=== PATIENT | male | born 1980 | race Caucasian/White ===

== ENCOUNTER 2016-11-03 13:24 | Emergency (ER) | payer SELFPAY ==
[~2016-11-03] VITALS: Ht 172.7 cm; Wt 67.0 kg
[~2016-11-03 13:24] MED LIST: HYDR2.5%T PR; LIDO5CRE EX
[2016-11-03 13:32] VITALS: BP 132/91; PULSE 111; RESP 18; TEMP 98.7; O2SAT 98
[2016-11-03] MEDS ORDERED: PROC2.5C RECTAL (13:44)
[2016-11-03] MEDS ORDERED: LIDOCAINE 1%/EPINEPHrine 1:100,000 SOLN 20 ML VIAL INFIL ONE (13:45)
--- NOTE | 2016-11-03 13:47 | PD ---
HPI Chief Complaint: GI Complaint Time Seen by Provider: 13:34 Travel History International Travel<30 days: No Contact w/Intl Traveler<30days: No Traveled to known affect area: No History of Present Illness HPI The patient is a 36-year-old male who presents emergency department for painful hemorrhoid. The patient has a history of painful hemorrhoids in the past with previous thrombectomy for removal of a thrombosed hemorrhoid as well as conservative treatment. The patient has been using [id number] medications and previous prescriptions for his hemorrhoid pain, however, continues to have pain. The patient states his symptoms started one week ago after he helped a neighbor remove a fence and was doing heavy lifting. The pain is worse with having bowel movements, but is persistent at rest. The patient states he can feel an external hemorrhoid which is significantly tender to palpation. The symptoms are moderate, possibly exacerbated by recent heavy lifting, and similar to a history of previous hemorrhoids. PFSH Past Surgical History Other Surgery: Yes (LANCED HEMMORRHOIDS 2014) Social History Alcohol Use: No Tobacco Use: Yes Substance Use: No Allergies-Medications (Allergen,Severity, Reaction): Coded Allergies: No Known Allergies (Unverified , 11/03/16) Reported Meds & Prescriptions Reported Meds & Active Scripts Active Reported Proctosol Hc (Hydrocortisone Rectal) 2.5% Cream 1 Applic RECTAL BID PRN Review of Systems Except as stated in HPI: all other systems reviewed are Neg Gastrointestinal: Positive: Other (as noted in the history of present illness) , No: Nausea, Vomiting, Abdominal Pain Genitourinary: No: Dysuria Skin: No Rash Physical Exam Narrative GENERAL: Awake, alert, 36-year-old male who appears his stated age and is in no acute respiratory distress. SKIN: Focused skin assessment warm/dry. HEAD: Atraumatic. Normocephalic. EYES: No injection or drainage. NECK: Trachea midline. No JVD. GASTROINTESTINAL: Abdomen soft, non-tender, nondistended. Rectal: The patient has an external and thrombosed hemorrhoid which is tender palpation. MUSCULOSKELETAL: No obvious deformities. No clubbing. No cyanosis. No edema. NEUROLOGICAL: Awake and alert. No obvious cranial nerve deficits. Motor grossly within normal limits. Normal speech. PSYCHIATRIC: Appropriate mood and affect; insight and judgment normal. Data Data Last Documented VS Vital Signs Date Time Temp Pulse Resp B/P Pulse Ox O2 Delivery O2 Flow Rate FiO2 11/03/16 13:32 98.7 111 18 132/91 98 Orders Lidocai-Epi 1%-1:100,000 Inj (Xylocaine- (11/03/16 13:45) Lidocaine 2% Jelly (Xylocaine 2% Jelly) (11/03/16 14:00) MDM Medical Decision Making Medical Screen Exam Complete: Yes Emergency Medical Condition: Yes Medical Record Reviewed: Yes Differential Diagnosis Differential diagnosis includes thrombosed hemorrhoid, external hemorrhoid, internal hemorrhoid, rectal prolapse, anal fissure. Narrative Course The patient has an external thrombosed hemorrhoid. I had a discussion with the patient regarding conservative management versus removal of the thrombosed hemorrhoid. After discussion, the patient states he would prefer to have possible removal of the thrombosed hemorrhoid. The patient had lidocaine jelly applied to the external thrombosed hemorrhoids. 2 separate incisions were made with 11 incisional blade using Hurricaine benzocaine spray, 2 small thrombosed clots were removed. The patient will be discharged home on pain medications and hemorrhoid medication. Procedures Procedure Narrative The patient had lidocaine jelly applied over the external hemorrhoids. He then had Hurricaine benzocaine spray applied over the affected area and 2 small incisions were made with a #11 incisional blade. I was able to use forceps to remove 2 separate thrombosed hemorrhoids. The patient tolerated the procedure without difficulty and there was no obvious complications. Diagnosis Primary Impression: External thrombosed hemorrhoids Patient Instructions: General Instructions Additional Instructions: Medications as directed. Follow-up with your primary physician. Return if symptoms worsen or progress. Sitz baths daily. Med/Other Pt SpecificInfo: Prescription(s) given Scripts Hydrocodone-Acetaminophen ([place])5-325 mg Tab1 Tab PO Q6H PRN (PAIN) #20 TAB Ref 0 Prov:Joshua Garcia MD 11/03/16 Hydrocortisone (Rectal) (Proctozone-Hc)2.5 % Cre1 Applic RECTAL BID #1 Prov:Joshua Garcia MD 11/03/16 Disposition: 01 DISCHARGE HOME Condition: Stable Joshua Garcia MD Nov 03, 2016 13:47
[2016-11-03] MEDS ORDERED: LIDOCAINE 2% JELLY 30 ML TUBE TOPICAL ONE (14:00)
[2016-11-03] MEDS ORDERED: NORC5TAB PO (14:17)
[2016-11-03] MEDS ORDERED: HYDR1CRE73 RECTAL (14:17)
== END 2016-11-03 14:33 | disposition home or self-care (01) ==
LOC: PHED 13:24
DX: K64.5 Perianal venous thrombosis (principal); Z72.0 Tobacco use
CPT/HCPCS: 46083